=== PATIENT | male | born 1945 | race Caucasian/White ===

== ENCOUNTER 2021-01-07 06:51 | Day surgery (SDC) | payer OTHER ==
[2021-01-03 15:16] VITALS: BMI 36.6
[2021-01-07] MEDS ORDERED: Lidocaine 1% MPF 2 ML VIAL ONE (08:12)
[2021-01-07] MEDS ORDERED: Lidocaine 1% PF 5 ML VIAL ONE (09:36)
[2021-01-07] MEDS ORDERED: PROPOFOL 40 ML ONE (09:36)
[2021-01-07] MEDS ORDERED: PROPOFOL 20 ML ONE ×2 (09:56→10:04)
== END 2021-01-07 11:20 | disposition home or self-care (01) ==
LOC: CSHSDC 06:51
PROVIDERS: ATTEND Internal Medicine Gastroenterology
DX: D64.9 Anemia, unspecified (principal); K63.5 Polyp of colon; K29.30 Chronic superficial gastritis without bleeding; K44.9 Diaphragmatic hernia without obstruction or gangrene; K64.9 Unspecified hemorrhoids; K57.30 Diverticulosis of large intestine without perforation or abscess without bleeding; I10 Essential (primary) hypertension; E11.9 Type 2 diabetes mellitus without complications; E78.5 Hyperlipidemia, unspecified; E66.9 Obesity, unspecified; G47.30 Sleep apnea, unspecified; Z90.49 Acquired absence of other specified parts of digestive tract
CPT/HCPCS: 88305; J2704